=== PATIENT | male | born 1980 | race Two or more races ===

== ENCOUNTER 2021-07-20 06:46 | Emergency (ER) | payer OTHER ==
[2021-07-20 07:12] VITALS: BP 143/82; PULSE 81; TEMP 98.2; BMI 25.8
[2021-07-20] MEDS ORDERED: IBUPROFEN 400 MG TABLET (FP) PO ONE ×2 (07:45→07:59)
== END 2021-07-20 08:14 | disposition home or self-care (01) ==
LOC: JER 06:46
DX: S46.812A Strain of other muscles, fascia and tendons at shoulder and upper arm level, left arm, initial encounter (principal); M54.2 Cervicalgia; X50.0XXA Overexertion from strenuous movement or load, initial encounter
CPT/HCPCS: 99283-25